=== PATIENT | female | born 1955 ===

== ENCOUNTER 2024-03-24 10:58 | Emergency (ER) | payer MEDICARE | END 2024-03-24 11:48 | disposition left against medical advice (07) | LOC: ERS 10:58 | DX: Z53.21 Procedure and treatment not carried out due to patient leaving prior to being seen by health care provider (principal) ==

== ENCOUNTER 2025-01-20 13:47 | Outpatient (CLI) | payer MEDICARE ==
[~2025-01-20 13:47] MED LIST: Iopamidol 370 76% 100 ML VIAL ONE
[2025-01-20 14:40] LABS: Estimated GFR - POC 80.0
== END 2025-01-20 13:48 | disposition home or self-care (01) ==
LOC: CT 13:47
PROVIDERS: ATTEND Internal Medicine
DX: K76.0 Fatty (change of) liver, not elsewhere classified (principal); K76.89 Other specified diseases of liver; Z83.79 Family history of other diseases of the digestive system
CPT/HCPCS: 36415; 74170; 82565